=== PATIENT | female | born 1990 | race Caucasian/White ===

== ENCOUNTER 2017-04-13 08:07 | Inpatient (IN) | payer SELFPAY ==
[~2017-04-13 08:07] MED LIST: Oxytocin in LR* 20 UNITS/1,000 ML BAG IVPB SCH
[2017-04-13] MEDS ORDERED: Penicillin G Potassium IV* 5,000,000 UNITS in NS 0.9% 100 ML* 100 ML IVPB ONE (09:00)
[2017-04-13 10:58] LABS: ABS Basophils 0 10^3/ul (0-0.2); ABS Eosinophils 0 10^3/ul (0-0.6); ABS Lymphocytes 1.3 10^3/ul (1.0-4.8); ABS Monocytes 0.8 10^3/ul (0-0.8); ABS Nucleated RBC 0 10^3/ul; Eosinophil % 0.3 % (0-6); Hematocrit 31 % (35-47); Hemoglobin 10.7 g/dl (12.0-16.0); Lymphocyte % 11.8 % (25-47); Mean Corpuscular HGB Conc 34 g/dl (31-36); Mean Corpuscular Hemoglobin 29 pg (27-31); Mean Corpuscular Volume 84 fL (80-97); Mean Platelet Volume 8 um3 (7.4-10.4); Nucleated Red Blood Cells % 0; Platelet Count 293 10^3/ul (150-450); Red Blood Count 3.72 10^6/ul (4.0-5.4); Red Cell Distribution Width 15 % (10.5-15); White Blood Count 11.1 10^3/ul (3.5-10.8)
[2017-04-13] MEDS: Penicillin G Potassium IV* 2,500,000 UNITS in NS 0.9% 100 ML* 100 ML IVPB SCH ×3 (13:22→21:13)
[2017-04-13] MEDS: Labetalol TAB* 100 MG PO SCH (20:56)
[2017-04-13] MEDS ORDERED: Ondansetron INJ* 2 MG/ML VIAL IV ONE (21:04)
[2017-04-13] MEDS ORDERED: Ondansetron INJ* 2 MG/ML VIAL ONE (21:10)
[2017-04-14] MEDS ORDERED: RHO D Immune Globulin (HUMAN)* 300 MCG = 1,500 I.U. INJ IM ONE (01:31)
[2017-04-14] MEDS ORDERED: Glycerin ADULT SUPP PR PRN (01:31)
[2017-04-14] MEDS ORDERED: Witch Hazel PAD* JAR TOPICAL PRN (01:31)
[2017-04-14] MEDS ORDERED: Tetan/Diph/Pertus SYR(Tdap)* 0.5 ML SYR(BOOSTRIX) use SYR IM ONE (01:31)
[2017-04-14] MEDS ORDERED: Acetaminophen TAB* 325 MG PO PRN (01:31)
[2017-04-14] MEDS ORDERED: Dibucaine 1% 28.35 GM TUBE PR PRN (01:31)
[2017-04-14] MEDS ORDERED: Oxytocin in LR* 20 UNITS/1,000 ML BAG IVPB SCH (01:37)
[2017-04-14] MEDS: Ibuprofen TAB* 600 MG PO PRN ×3 (01:41→20:31)
[2017-04-14] MEDS: Labetalol TAB* 100 MG PO SCH ×2 (08:44→22:16)
[2017-04-14] MEDS: Docusate CAP* 100 MG PO SCH ×3 (08:44→21:30)
[2017-04-14] MEDS: Simethicone TAB* 80 MG TAB.CHEW PO SCH ×2 (08:45→14:27)
[2017-04-15 06:50] LABS: Hematocrit 25 % (35-47); Hemoglobin 8.3 g/dl (12.0-16.0); Mean Corpuscular HGB Conc 34 g/dl (31-36); Mean Corpuscular Hemoglobin 28 pg (27-31); Mean Corpuscular Volume 85 fL (80-97); Mean Platelet Volume 7 um3 (7.4-10.4); Platelet Count 220 10^3/ul (150-450); Red Blood Count 2.95 10^6/ul (4.0-5.4); Red Cell Distribution Width 15 % (10.5-15); White Blood Count 11.2 10^3/ul (3.5-10.8)
[2017-04-15 08:27] VITALS: BP 117/77
[2017-04-15] MEDS ORDERED: Ferrous Gluconate TAB* 324 MG TAB PO SCH (09:00)
[2017-04-15] MEDS: Ibuprofen TAB* 600 MG PO PRN (09:09)
[2017-04-15] MEDS: Labetalol TAB* 100 MG PO SCH (09:10)
[2017-04-15] MEDS: Docusate CAP* 100 MG PO SCH (09:10)
== END 2017-04-15 19:20 | disposition home or self-care (01) | DRG 775 ==
LOC: MCHOBOUT 08:07 → MCHOB 08:34
PROVIDERS: ADMIT Midwife; ATTEND Midwife
PROC: 10E0XZZ Delivery of Products of Conception, External Approach (ICD-10-PCS; principal; 2017-04-14)
PROC: 3E033VJ Introduction of Other Hormone into Peripheral Vein, Percutaneous Approach (ICD-10-PCS; 2017-04-14)
PROC: 10907ZC Drainage of Amniotic Fluid, Therapeutic from Products of Conception, Via Natural or Artificial Opening (ICD-10-PCS; 2017-04-14)
PROC: 0HQ9XZZ Repair Perineum Skin, External Approach (ICD-10-PCS; 2017-04-14)
DX: O13.4 Gestational [pregnancy-induced] hypertension without significant proteinuria, complicating childbirth (principal); O99.344 Other mental disorders complicating childbirth; F41.9 Anxiety disorder, unspecified; O99.824 Streptococcus B carrier state complicating childbirth; O70.0 First degree perineal laceration during delivery; O77.0 Labor and delivery complicated by meconium in amniotic fluid; Z3A.39 39 weeks gestation of pregnancy; Z37.0 Single live birth
CPT/HCPCS: 36415; 85025; 85027; 85461; 86850; 86900; 86901; 90715; A9270-GY; J2405; J2540; J2790